=== PATIENT | female | born 1985 ===

== ENCOUNTER 2017-12-31 02:13 | Emergency (ER) | payer OTHER ==
[2017-12-31] MEDS ORDERED: DEXAMETHASONE SOD PHOS INJ 10 MG/1 ML VIAL IM ONE (02:50)
[2017-12-31] MEDS ORDERED: HYDROMORPHONE HCL INJ/PF 2 MG/ML AMPULE IM ONE (02:51)
--- NOTE | 2017-12-31 02:53 | ER Document Report ---
ED General - General Chief Complaint: Neck and upper back pain Stated Complaint: NECK/BACK PAIN Time Seen by Provider: 12/31/17 02:50 Mode of Arrival: Ambulatory Information source: Patient Notes: This is a 32-year-old female with a history of neck pain with paresthesias who has had physical therapy and acupuncture and is currently on a regimen of Robaxin, Neurontin, Naprosyn who presents to the emergency room with an exacerbation of the neck pain. She denies any fever. She denies any motor weakness to the upper extremities. TRAVEL OUTSIDE OF THE [place] IN LAST 30 DAYS: No - HPI Onset: Last week Onset/Duration: Gradual Quality of pain: Dull Severity: Moderate Pain Level: 3 Associated symptoms: denies: Chills, Fever, Shortness of breath Exacerbated by: Movement Relieved by: Remaining still Similar symptoms previously: Yes Recently seen / treated by doctor: Yes - Related Data Allergies/Adverse Reactions: ciprofloxacin [From Cipro] Allergy (Verified 12/31/17 02:26) nickel Allergy (Verified 12/31/17 02:26) Sulfa (Sulfonamide Antibiotics) Allergy (Verified 12/31/17 02:26) Past Medical History - General Information source: Patient - Social History Smoking Status: Never Smoker Cigarette use (# per day): No Chew tobacco use (# tins/day): No Frequency of alcohol use: None Drug Abuse: None Lives with: Family Family History: None Patient has suicidal ideation: No Patient has homicidal ideation: No - Past Medical History Cardiac Medical History: Reports: None Pulmonary Medical History: Reports: None EENT Medical History: Reports: Other - History of cervical disc disease Neurological Medical History: Reports: None Endocrine Medical History: Reports: None Renal/ Medical History: Reports: None Malignancy Medical History: Reports: None GI Medical History: Reports: None Musculoskeltal Medical History: Reports Other - Cervical disc disease Skin Medical History: Reports None Psychiatric Medical History: Reports: None Traumatic Medical History: Reports: None Infectious Medical History: Reports: None Surgical Hx: Negative Review of Systems - Review of Systems Constitutional: denies: Chills, Fever EENT: See HPI Cardiovascular: No symptoms reported Respiratory: No symptoms reported Gastrointestinal: No symptoms reported Genitourinary: No symptoms reported Female Genitourinary: No symptoms reported Musculoskeletal: See HPI Skin: No symptoms reported Hematologic/Lymphatic: No symptoms reported Neurological/Psychological: No symptoms reported Physical Exam - Vital signs Vitals: Temp Pulse Resp BP Pulse Ox 97.7 F 79 16 119/77 100 12/31/17 02:29 12/31/17 02:12/31/17 02:29 12/31/17 02:29 12/31/17 02:29 Notes: Physical exam: GENERAL: 32-year-old female, alert and oriented 3, no acute distress HEAD: Atraumatic, normocephalic. EYES: Pupils equal round and reactive to light, extraocular movements intact, sclera anicteric, conjunctiva are normal. ENT: TMs normal, nares patent, oropharynx clear without exudates. Moist mucous membranes. NECK: Patient has tenderness to the paraspinal cervical region. There is no spinal step-offs, crepitus, skin changes. LUNGS: Breath sounds clear to auscultation bilaterally and equal. No wheezes rales or rhonchi. HEART: Regular rate and rhythm without murmurs, rubs or gallops. ABDOMEN: Soft, normoactive bowel sounds. No tenderness to palpation. No guarding, no rebound. No masses appreciated. EXTREMITIES: Normal range of motion, no pitting or edema. No clubbing or cyanosis. NEUROLOGICAL: Cranial nerves II through XII grossly intact. Normal speech, moving all extremities. Upper extremity strength is good. Sensory to the upper extremity is good. PSYCH: Normal mood, normal affect. SKIN: Warm, Dry, normal turgor, no rashes or lesions noted. Course - Vital Signs Vital signs: Temp Pulse Resp BP Pulse Ox 97.7 F 79 16 119/77 100 12/31/17 02:29 12/31/17 02:29 12/31/17 02:29 12/31/17 02:29 12/31/17 02:29 Discharge - Discharge Clinical Impression: Cervical strain Condition: Stable Disposition: HOME, SELF-CARE Additional Instructions: Thank you for choosing [facility] for your care. The examination and treatment you have received in the Emergency Department today has been rendered on an emergency basis only and is not intended to be a substitute for complete medical care. You should contact your doctor as it is important that she/he examine you for any new or remaining problems. If given a copy of any lab tests or radiology reports, please bring them with you when you see your physician. If your problem worsens or new symptoms appear and you are unable to arrange prompt follow-up care, return to the Emergency Department. Specific signs to look out for: Worsening neck pain, fever (temperature greater than 100.4), upper arm weakness or worsening numbness Any other instructions: I would like you to follow-up with your primary care doctor: You should get an outpatient MRI of the cervical spine. Take the steroids as prescribed. Take the Percocet as needed Continue other medicines. I recommend following up with a neck specialist. The pain medicine you're taking prescribed as a narcotic. There are several important things you should know about this medicine: 1. This medicine contains Tylenol: It is important that you do not take Tylenol (or acetaminophen) while on this medicine. Tylenol is metabolized by the liver and taking too much Tylenol (acetaminophen) can lay to liver damage and even liver failure. 2. Taking narcotics for too long can lead to physical and mental dependence. Take this medicine only if really needed and in the lowest quantity to achieve pain relief. 3. Do not drink alcohol while on this medicine. Alcohol interacts with narcotics and the combination can be dangerous. 4. Do not drive or operate machinery while on this medicine. 5. Narcotics do cause constipation, so drink plenty of fluids and daily stool softeners. Prescriptions: Methylprednisolone [Medrol 4 mg Dosepack 21 Tab/Pack] 4 mg PO ASDIR PRN #21 tab.ds.pk PRN Reason: Oxycodone HCl/Acetaminophen [Percocet 5-325 mg Tablet] 1 - 2 tab PO ASDIR PRN # 15 tablet PRN Reason:
[2017-12-31 04:30] VITALS: BP 108/73
== END 2017-12-31 04:37 | disposition home or self-care (01) ==
LOC: ER 02:13
DX: S16.1XXA Strain of muscle, fascia and tendon at neck level, initial encounter (principal); M54.89 Other dorsalgia; X58.XXXA Exposure to other specified factors, initial encounter; Z88.2 Allergy status to sulfonamides; Z88.3 Allergy status to other anti-infective agents
CPT/HCPCS: 99283; 96372; 96374; J1170; J1100

== ENCOUNTER 2018-12-25 17:15 | Emergency (ER) | payer OTHER ==
[2018-12-25] MEDS ORDERED: METOCLOPRAMIDE HCL INJ/PF 10 MG/2 ML SDV IV ONE (17:36)
[2018-12-25] MEDS ORDERED: NORMAL SALINE 1000 ML 1,000 ML IV ONE ×2 (17:36→19:27)
[2018-12-25 19:03] LABS: ABSOLUTE LYMPHOCYTES (AUTO) 1.9 10^3/uL (0.5-4.7); ABSOLUTE MONOCYTES (AUTO) 0.6 10^3/uL (0.1-1.4); ABSOLUTE NEUT (AUTO) 9.6 10^3/uL (1.7-8.2); BASOPHILS % (AUTO) 0.3 % (0-2); HEMATOCRIT 37.5 % (36.0-47.0); HEMOGLOBIN 12.8 g/dL (12.0-15.5); LYMPHOCYTES % (AUTO) 15.7 % (13-45); MEAN CORPUSCULAR HEMOGLOBIN 29.1 pg (27.0-33.4); MEAN CORPUSCULAR VOLUME 86 fl (80-97); MONOCYTES % (AUTO) 5.3 % (3-13); PLATELET COUNT 344 10^3/uL (150-450); RED BLOOD COUNT 4.38 10^6/uL (3.72-5.28); RED CELL DISTRIBUTION WIDTH 14.5 % (11.5-14.0); SEGMENTED NEUTROPHILS % (AUTO) 78.7 % (42-78); TOTAL CELLS COUNTED % (AUTO) 100 %; WHITE BLOOD COUNT 12.2 10^3/uL (4.0-10.5)
[2018-12-25 19:34] LABS: ALANINE AMINOTRANSFERASE 39 U/L (9-52); ALBUMIN 3.8 g/dL (3.5-5.0); ALKALINE PHOSPHATASE 90 U/L (38-126); ANION GAP 10 (5-19); ASPARTATE AMINO TRANSFERASE 23 U/L (14-36); BILIRUBIN,DIRECT 0.2 mg/dL (0.0-0.4); BILIRUBIN,TOTAL 0.4 mg/dL (0.2-1.3); BLOOD UREA NITROGEN 8 mg/dL (7-20); CALCIUM 9.3 mg/dL (8.4-10.2); CARBON DIOXIDE 20 mmol/L (22-30); CHLORIDE 107 mmol/L (98-107); GLUCOSE 88 mg/dL (75-110); POTASSIUM 4.2 mmol/L (3.6-5.0); TOTAL PROTEIN 6.5 g/dL (6.3-8.2)
[2018-12-25 20:09] VITALS: BP 109/50
[2018-12-25] MEDS ORDERED: PROMETHAZINE HCL 25 MG SUPP (4 SUPP/ER DISP) PR ONE (20:11)
--- NOTE | 2018-12-25 20:11 | ER Document Report ---
ED General - General Chief Complaint: Vomiting Stated Complaint: VOMITTING Time Seen by Provider: 12/25/18 17:35 Mode of Arrival: Ambulatory Information source: Patient Notes: Patient is an otherwise healthy 33-year-old female who is 9 weeks presenting with nausea and vomiting. She states she has been having issues with nausea and vomiting for the last couple of days. She states that she has no abdominal pain, vaginal bleeding, abnormal discharge or dysuria. TRAVEL OUTSIDE OF THE [place] IN LAST 30 DAYS: No - Related Data Allergies/Adverse Reactions: ciprofloxacin [From Cipro] Allergy (Verified 12/25/18 17:16) nickel Allergy (Verified 12/25/18 17:16) Sulfa (Sulfonamide Antibiotics) Allergy (Verified 12/25/18 17:16) Past Medical History - General Information source: Patient - Social History Smoking Status: Former Smoker Frequency of alcohol use: None Drug Abuse: None Family History: None Patient has suicidal ideation: No Patient has homicidal ideation: No - Medical History Medical History: Negative Renal/ Medical History: Denies: Hx Peritoneal Dialysis Past Surgical History: Reports: Hx Orthopedic Surgery - C-5-6-7 fusion - Immunizations Immunizations up to date: Yes Review of Systems - Review of Systems Constitutional: No symptoms reported EENT: No symptoms reported Cardiovascular: No symptoms reported Respiratory: No symptoms reported Gastrointestinal: Nausea, Vomiting Genitourinary: No symptoms reported Female Genitourinary: No symptoms reported Musculoskeletal: No symptoms reported Skin: No symptoms reported Hematologic/Lymphatic: No symptoms reported Neurological/Psychological: No symptoms reported Physical Exam - Vital signs Vitals: Temp Pulse Resp BP Pulse Ox 98.4 F 95 18 125/73 98 12/25/18 17:24 12/25/18 17:24 12/25/18 17:24 12/25/18 17:24 12/25/18 17:24 - Notes Notes: PHYSICAL EXAMINATION: GENERAL: Well-appearing, well-nourished and in no acute distress. HEAD: Atraumatic, normocephalic. EYES: Pupils equal round and reactive to light, extraocular movements intact, conjunctiva are normal. ENT: Nares patent, oropharynx clear without exudates. Moist mucous membranes. NECK: Normal range of motion, supple without lymphadenopathy LUNGS: Breath sounds clear to auscultation bilaterally and equal. No wheezes rales or rhonchi. HEART: Regular rate and rhythm without murmurs ABDOMEN: Soft, nontender, nondistended abdomen. No guarding, no rebound. No masses appreciated. Female : No CVA tenderness. Musculoskeletal: Normal range of motion, no pitting or edema. No cyanosis. NEUROLOGICAL: Cranial nerves grossly intact. Normal speech, normal gait. Normal sensory, motor exams PSYCH: Normal mood, normal affect. SKIN: Warm, Dry, normal turgor, no rashes or lesions noted. Course - Re-evaluation Re-evalutation: Physical examination is unremarkable, abdomen is soft, nontender with no guarding or no rebound. CBC with some mild nonspecific leukocytosis. CMP is unremarkable. Patient declines to provide a urine sample. Patient reports she feels much improved after administration of IV fluids and antiemetics. Patient has an OB appointment for follow-up on Thursday. Patient will be discharged home with Phenergan and given ED return precautions. - Vital Signs Vital signs: Temp Pulse Resp BP Pulse Ox 98.7 F 83 16 109/50 L 100 12/25/18 20:07 12/25/18 20:07 12/25/18 20:07 12/25/18 20:07 12/25/18 20:07 - Laboratory Result Diagrams: 12/25/18 18:05 12/25/18 18:58 Laboratory results interpreted by me: 12/25/18 12/25/18 18:05 18:58 WBC 12.2 H RDW 14.5 H Seg Neutrophils % 78.7 H Absolute Neutrophils 9.6 H Carbon Dioxide 20 L Discharge - Discharge Clinical Impression: Vomiting affecting Condition: Stable Disposition: HOME, SELF-CARE Additional Instructions: Hyperemesis Gravidarum Hyperemesis gravidarum is the medical term for severe vomiting during . We don't know exactly why it occurs, but it's a common problem. Dehydration can occur. This reduces blood flow to the placenta, decreasing the baby's nourishment. The baby will also become dehydrated. There can be harmful changes in blood sodium, potassium, or acid balance. Our goal is to correct, and prevent, dehydration. For severe cases, we give IV fluids. Antinausea medication will be prescribed. (Don't be concerned about " defects" -- the risk to you and your baby from the hyperemesis is the biggest problem. The antinausea medication is very safe at this stage of .) Call the doctor if you have vaginal bleeding, abdominal pain, severe lightheadedness or weakness, or other alarming symptoms. You are seen today for excessive vomiting during . Often times this is termed hyperemesis gravidarum. Please take the Phenergan as prescribed. If you are unable to hold down the oral form you can use a rectal suppository. Please keep the follow-up appointment that you have scheduled with your [facility] at [facility]. Prescriptions: Promethazine HCl [Phenergan 25 mg Tablet] 1 - 2 tab PO Q6H PRN #15 tablet PRN Reason:
== END 2018-12-25 20:17 | disposition home or self-care (01) ==
LOC: ER 17:15
DX: O21.9 Vomiting of pregnancy, unspecified (principal); O99.111 Other diseases of the blood and blood-forming organs and certain disorders involving the immune mechanism complicating pregnancy, first trimester; D72.829 Elevated white blood cell count, unspecified; Z3A.09 9 weeks gestation of pregnancy; Z88.2 Allergy status to sulfonamides; Z88.1 Allergy status to other antibiotic agents; Z91.048 Other nonmedicinal substance allergy status; Z87.891 Personal history of nicotine dependence
CPT/HCPCS: 99283; 96361; 96374; 36415; 85025; 80053; J3490; J2765; J7030

== ENCOUNTER → 2020-06-26 | Outpatient (CLI) | payer OTHER ==
[2020-06-26 16:55] LABS: ABSOLUTE LYMPHOCYTES (AUTO) 1.6 10^3/uL (0.5-4.7); ABSOLUTE MONOCYTES (AUTO) 0.4 10^3/uL (0.1-1.4); ABSOLUTE NEUT (AUTO) 5.7 10^3/uL (1.7-8.2); BASOPHILS % (AUTO) 0.4 % (0-2); EOSINOPHILS % (AUTO) 0.1 % (0-6); HEMOGLOBIN 12.7 g/dL (12.0-15.5); LYMPHOCYTES % (AUTO) 20.9 % (13-45); MEAN CORPUSCULAR HEMOGLOBIN 27.9 pg (27.0-33.4); MEAN CORPUSCULAR HGB CONC 33.4 g/dL (32.0-36.0); MEAN CORPUSCULAR VOLUME 84 fl (80-97); MONOCYTES % (AUTO) 4.8 % (3-13); PLATELET COUNT 400 10^3/uL (150-450); RED BLOOD COUNT 4.55 10^6/uL (3.72-5.28); RED CELL DISTRIBUTION WIDTH 15.1 % (11.5-14.0); SEGMENTED NEUTROPHILS % (AUTO) 73.8 % (42-78); TOTAL CELLS COUNTED % (AUTO) 100 %; WHITE BLOOD COUNT 7.8 10^3/uL (4.0-10.5)
[2020-06-26 17:20] LABS: ALBUMIN 4.6 g/dL (3.5-5.0); ALKALINE PHOSPHATASE 133 U/L (38-126); ANION GAP 12 (5-19); ASPARTATE AMINO TRANSFERASE 35 U/L (14-36); BILIRUBIN,DIRECT 0.3 mg/dL (0.0-0.4); BILIRUBIN,TOTAL 0.4 mg/dL (0.2-1.3); BLOOD UREA NITROGEN 13 mg/dL (7-20); C-REACTIVE PROTEIN 24.5 mg/L (<10.0); CALCIUM 9.8 mg/dL (8.4-10.2); CARBON DIOXIDE 26 mmol/L (22-30); CHLORIDE 102 mmol/L (98-107); GLUCOSE 112 mg/dL (75-110); POTASSIUM 4.4 mmol/L (3.6-5.0); TOTAL PROTEIN 7.6 g/dL (6.3-8.2)
[2020-06-26 17:57] LABS: ERYTHROCYTE SEDIMENTATION RATE 19 mm/hr (0-20)
--- NOTE | 2020-06-27 16:21 | RADIOLOGY REPORT (SQ) ---
EXAM DESCRIPTION: HAND BILATERAL 2 VIEWS IMAGES COMPLETED DATE/TIME: 06/27/2020 4:13 pm REASON FOR STUDY: TOSIN HAND PAIN M25.50 PAIN IN UNSPECIFIED JOINT M79.641 PAIN IN RIGHT HAND M79.64 2 PAIN IN LEFT HAND COMPARISON: None. EXAM PARAMETERS: NUMBER OF VIEWS: Two views right hand. Two views left hand. TECHNIQUE: AP and lateral radiographic images acquired of bilateral hands. LIMITATIONS: None. FINDINGS: RIGHT HAND: MINERALIZATION: Normal. BONES: No acute fracture or dislocation. No worrisome bone lesions. No significant osteophytes. JOINTS: No erosions. No iva-articular osteopenia. No chondrocalcinosis. SOFT TISSUES: No swelling. No calcifications. OTHER: No other significant finding. LEFT HAND: MINERALIZATION: Normal. BONES: No acute fracture or dislocation. No worrisome bone lesions. No significant osteophytes. JOINTS: No erosions. No iva-articular osteopenia. No chondrocalcinosis. SOFT TISSUES: No swelling. No calcifications. OTHER: No other significant finding. IMPRESSION: NEGATIVE STUDY BILATERAL HANDS. NO ACUTE POST-TRAUMATIC CHANGES. NO EXPLANATION FOR PAIN . TECHNICAL DOCUMENTATION: JOB ID: [id number] 2010 [employer]- All Rights Reserved Reading location - IP/workstation name: [email or web address]
== END ==
LOC: OD 15:12
PROVIDERS: ATTEND Family Medicine
DX: M25.50 Pain in unspecified joint (principal); M79.641 Pain in right hand; M79.642 Pain in left hand
CPT/HCPCS: 36415; 80053; 84443; 85025; 85652; 86140; 86225; 86235; 86431